=== PATIENT | male | born 1950 | race Caucasian/White ===

== ENCOUNTER 2017-08-25 10:39 | Emergency (ER) | payer OTHER ==
[2017-08-25 10:51] VITALS: BMI 28.2
[2017-08-25 11:49] VITALS: RESP 18
--- NOTE | 2017-08-25 12:23 | C.PDOC ---
History Of Present Illness The patient reports 8 day history of sore throat which is associated with cough productive of yellow/green sputum and intermittent fever. Denies vomiting, diarrhea, abdominal pain, back pain, hemoptysis. Otherwise no difficulty breathing, wheezing, or chest tightness. Time Seen by Provider: 08/25/17 11:51 Chief Complaint (Nursing): ENT Problem History Per: Patient History/Exam Limitations: no limitations Onset/Duration Of Symptoms: Days Current Symptoms Are (Timing): Still Present Past Medical History Reviewed: Historical Data, Nursing Documentation, Vital Signs Vital Signs: Last Vital Signs Temp 98.6 F 08/25/17 10:51 Pulse 93 H 08/25/17 10:51 Resp 18 08/25/17 10:55 BP 173/87 H 08/25/17 10:51 Pulse Ox 97 08/25/17 13:00 - Medical History PMH: HTN, Hypercholesterolemia Denies: Chronic Kidney Disease Family History: States: Unknown Family Hx - Social History Hx Alcohol Use: No Hx Substance Use: No - Immunization History Hx Tetanus Toxoid Vaccination: No Hx Influenza Vaccination: No Hx Pneumococcal Vaccination: No Review Of Systems Except As Marked, All Systems Reviewed And Found Negative. Constitutional: Positive for: Fever ENT: Positive for: Throat Pain Cardiovascular: Negative for: Chest Pain Respiratory: Positive for: Cough, Sputum. Negative for: Shortness of Breath, Hemoptysis, Wheezing Gastrointestinal: Negative for: Vomiting, Abdominal Pain, Diarrhea Musculoskeletal: Negative for: Back Pain Physical Exam - Physical Exam Appears: Non-toxic, No Acute Distress Skin: Warm, Dry, No Rash Head: Atraumatic, Normacephalic Eye(s): bilateral: Normal Inspection, EOMI Ear(s): Bilateral: Normal Oral Mucosa: Moist Throat: Normal, No Erythema, No Exudate Neck: Normal ROM, Supple Chest: Symmetrical Cardiovascular: Rhythm Regular Respiratory: Rhonchi (scattered bilaterally), Other (Coarse breath sounds at the bases) Gastrointestinal/Abdominal: Soft, No Tenderness Extremity: Bilateral: Atraumatic, Normal Color And Temperature, Normal ROM Pulses: Left Radial: Normal, Right Radial: Normal Neurological/Psych: Oriented x3, Normal Speech, Normal Cranial Nerves ED Course And Treatment O2 Sat by Pulse Oximetry: 97 (RA) Pulse Ox Interpretation: Normal - Radiology CXR: Interpreted by Me, Viewed By Me CXR Interpretation: Yes: Other (increased venous congestion noted to right middle/lower lobe, possible viral pneumonitis vs. infiltrate) Medical Decision Making Medical Decision Making: Plan: --Chest x-ray CXR reviewed by me, and discussed with ED attending Dr. Gold. Patient will be treated with PO antibiotics. Disposition - Disposition Referrals: [facility] [Outside] Disposition: HOME/ ROUTINE Disposition Time: 13:02 Condition: GOOD Additional Instructions: Follow up with the medical doctor/clinic within 1-2 days without fail. Return if worsened. Prescriptions: Azithromycin [Zithromax] 250 mg PO DAILY #4 tab predniSONE [Prednisone] 20 mg PO BID #10 tab Promethazine/Codeine [Phenergan/Codeine Oral Syrup] 5 ml PO Q8 PRN #50 ml PRN Reason: Cough Instructions: Acute Bronchitis Forms: [employer] (Lebanese) Print Language: POLISH - Clinical Impression Clinical Impression: Bronchitis - PA / PIT HAND / Resident Statement MD/DO has reviewed & agrees with the documentation as recorded. - Scribe Statement The provider has reviewed the documentation as recorded by the Scribe (Marianna Ceja) All medical record entries made by the Scribe were at my direction and personally dictated by me. I have reviewed the chart and agree that the record accurately reflects my personal performance of the history, physical exam, medical decision making, and the department course for this patient. I have also personally directed, reviewed, and agree with the discharge instructions and disposition.
--- NOTE | 2017-08-25 12:45 | RAD ---
HISTORY: cough, rhonchi at the bases COMPARISON: No prior. TECHNIQUE: Chest PA and lateral FINDINGS: LUNGS: Questionable left lower lobe consolidation. Prominent bronchovascular markings bilaterally. PLEURA: No significant pleural effusion identified. No pneumothorax apparent. CARDIOVASCULAR: Atherosclerotic aortic calcifications. Cardiomediastinal silhouette at the upper limits of normal in size. OSSEOUS STRUCTURES: Degenerative changes. VISUALIZED UPPER ABDOMEN: Normal. OTHER FINDINGS: None. IMPRESSION: Questionable left lower lobe consolidation.
[2017-08-25 13:19] VITALS: TEMP 100.1
[2017-08-25 13:27] VITALS: BP 151/84; PULSE 73
[2017-08-25 23:17] VITALS: O2SAT 97
== END 2017-08-25 13:27 | disposition home or self-care (01) ==
LOC: C.ER 10:39
DX: J40 Bronchitis, not specified as acute or chronic (principal)